=== PATIENT | female | born 1980 | race African-American/Black ===

== ENCOUNTER 2021-07-23 02:18 | Emergency (ER) | payer OTHER ==
[~2021-07-23] VITALS: Ht 162.6 cm; Wt 65.8 kg
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
[2021-07-23] MEDS ORDERED: LIDOCAINE 1%-EPI 1:100,000 50 ML VIAL IJ ONE (03:00)
[2021-07-23] MEDS ORDERED: TDAP [DIPH/PERTUSSIS/TET] 0.5 ML VIAL IM ONE ×2 (03:00→03:13)
[2021-07-23] MEDS ORDERED: LIDOCAINE 1%-EPI 1:100,000 20 ML VIAL ONE (03:13)
[2021-07-23 04:13] VITALS: BP 131/74
[2021-07-23] MEDS ORDERED: LIDOCAINE MPF 1%-EPI 1:200,000 30 ML VIAL IJ ONE (04:37)
--- NOTE | 2021-07-23 05:10 | NUR ---
wound care provided. dressing placed.
--- NOTE | 2021-07-23 05:10 | NUR ---
EMT AT BEDSIDE FRED DRESSING
--- NOTE | 2021-07-23 05:13 | NUR ---
pt is medically cleared for booking and released under the care of P officers in stable condition.
== END 2021-07-23 05:13 | disposition home or self-care (01) ==
LOC: ER 02:24
DX: S51.812A Laceration without foreign body of left forearm, initial encounter (principal); S41.112A Laceration without foreign body of left upper arm, initial encounter; R51.9 Headache, unspecified; F10.10 Alcohol abuse, uncomplicated; F17.200 Nicotine dependence, unspecified, uncomplicated; Y90.9 Presence of alcohol in blood, level not specified; Z60.2 Problems related to living alone; Z20.89 Contact with and (suspected) exposure to other communicable diseases; V49.49XA Driver injured in collision with other motor vehicles in traffic accident, initial encounter; Y93.89 Activity, other specified; Y92.488 Other paved roadways as the place of occurrence of the external cause; Y99.8 Other external cause status
CPT/HCPCS: 12004; 70450; 71045; 72125; 73080; 73090; 99284; J3490 ×3; 90715